=== PATIENT | male | born 1975 | race Caucasian/White ===

== ENCOUNTER → 2021-12-24 10:08 | Outpatient (BNVA) | payer BC, SELFPAY | PROVIDERS: Family Provider Family Medicine; PCP Family Medicine; Visit Provider Student in an Organized Health Care Education/Training Program | DX: S83.8X2A Sprain of other specified parts of left knee, initial encounter (principal); X58.XXXA Exposure to other specified factors, initial encounter | CPT/HCPCS: 73560; 73565 ==

== ENCOUNTER 2022-01-26 13:46 | Outpatient (CLI) | payer BC, SELFPAY ==
--- NOTE | 2022-01-26 14:30 | MR_ITS ---
WS: [id number] MRI LEFT KNEE NONCONTRAST TECHNIQUE: Axial PD, coronal PD fat sat, coronal PD, sagittal PD, and sagittal PD fat-sat images obta ined. CLINICAL INFORMATION: left knee pain COMPARISON: None. FINDINGS: Distal quadriceps and patella tendons are intact. Tiny suprapatellar effusion. Hypertrophic patella. Normal ACL and PCL. Normal lateral meniscus. Tiny horizontal tear involving the posterior horn medial meniscus extends to the articular surface. Peripheral extrusion of the medial meniscus. Chronic thin kevon of the medial meniscus with slight peripheral extrusion. Grade 2 injury of the medial collateral ligament with fluid and edema along the superficial and deep fibers consistent with ligamentous inju ry. MCL appears grossly intact. Normal LCL. Grade III chondromalacia involving the medial joint cristian rtment with joint space narrowing. Moderate chondromalacia patella. Normal medial and lateral patellar retinaculum. Normal popliteal fos sa. Small amount of prepatellar and infrapatellar soft tissue edema. Diffuse soft tissue thickening a nd subcutaneous edema along the prepatellar and infrapatellar soft tissues with anterior patella enth esophyte best identified on the recent radiograph. Associated edema in this area with underlying mitchell lla edema. MR/MR knee LT wo con* [id number] IMPRESSION: 1. Normal ACL and PCL. 2. Tiny horizontal tear involving the posterior horn medial meniscus extending to the articular surface. This is best identified on the coronal imaging. 3. Grade 2 ligamentous injury involving the medial collateral ligament with fl uid and edema along the superficial and deep fibers. MCL appears grossly intact . 4. Grade III chondromalacia involving the medial joint compartment. Peripheral extrusion of the medial meniscus. 5. Moderate chondromalacia patella.Diffuse soft tissue thickening and subcutan eous edema along the prepatellar and infrapatellar soft tissues with anterior e nthesophyte best identified on the recent radiograph. Associated edema in this area with underlying patellar edema. Outbridge grading: grade III: partial-thickness cartilage loss with focal ulcer ation
== END 2022-01-26 13:47 | disposition home or self-care (01) ==
PROVIDERS: PCP Family Medicine; Visit Provider Student in an Organized Health Care Education/Training Program
DX: S83.412A Sprain of medial collateral ligament of left knee, initial encounter (principal); M22.42 Chondromalacia patellae, left knee; M25.462 Effusion, left knee; M77.8 Other enthesopathies, not elsewhere classified; X58.XXXA Exposure to other specified factors, initial encounter
CPT/HCPCS: 73721

== ENCOUNTER 2022-02-09 08:46 | Day surgery (SDC) | payer BC, SELFPAY ==
[2022-02-08 13:50] VITALS: BMI 39.1
[2022-02-09] VITALS (10 sets, daily range): BP systolic 108–154; BP diastolic 70–104; PULSE 70–82; RESP 13–20; TEMP 36.1–36.6; O2SAT 95–98
[2022-02-09] MEDS: acetaminophen 1,000 MG/100 ML PIGGYBACK 400 MG IV (09:28)
[2022-02-09] MEDS: ketorolac 30 mg/mL INJ IVP (09:29)
[2022-02-09] MEDS: sodium chloride 0.9% 1,000 ML 30 ML IV (09:29)
--- NOTE | 2022-02-09 09:59 | ANES.PREANE2 ---
Pre-Anesthetic Assessment Height/Weight: Height 1.7 m Weight 113.398 kg Temp Pulse Resp BP Pulse Ox O2 Del Method 97.8 F 74 18 135/87 97 02/09/22 09:06 02/09/22 09:06 02/09/22 09:06 02/09/22 09:06 02/09/22 09:06 02/09/22 09:11 Preop Diagnosis: Left knee medial meniscus tear Operation Date: 02/09/22 10:20 Proposed Procedures p DIAGNOSTIC AND SURGICAL LEFT KNEE ARTHROSCOPY PARTIAL MEDIAL MENISCECTOMY VERSUS MEDIAL MENISCAL REPAIR [id number], [id number], [id number],S83.8X2A(Left) - Nelson Monse, DO Familial anesthetic complications: none Was Beta Laxmi taken within 24 hours: N/A Was Clonidine taken within 24 hours: N/A Last intake: Intake Last Liquid Date 02/08/22 Last Liquid Time 21:00 Last Solid Date 02/08/22 Last Solid Time 18:00 Social Tobacco and No alcohol Exam alert, oriented x 3, clear to auscultation bilaterally and regular rate & rhythm Airway Submandibular: within normal limits Cervical ROM: within normal limits Mallampati: Class II Dentition: full Pulmonary Chronic Obstructive Pulmonary Disease [facility] [place] Gout Anesthetic Plan ASA status: 2 Anesthesia: Choice and Regional (specify below) (left adductor blk) Medications/Allergies Home Medications Medication Instructions Recorded Confirmed Last Taken Type allopurinol 100 mg tablet 100 mg PO 1XD 02/08/22 02/09/22 02/08/22 History Allergies Allergy/AdvReac Type Severity Reaction Status Date / Time No Known Allergies Allergy Verified 02/08/22 13:48 Current Medications Generic Name Dose Route Start Last Admin Trade Name Freq PRN Reason Stop Dose Admin Sodium Chloride 1,000 mls @ 30 mls/hr 02/09/22 09:00 02/09/22 09:29 Sodium Chloride 0.9% IV 02/10/22 08:59 30 mls/hr .Q24H LETY Administration PFSH Anesthesia Medical History Acute medial meniscal injury of left knee Data Anesthesia Cardiac Studies: No Data to Display
--- NOTE | 2022-02-09 10:32 | W.PM.OPSUD ---
Surgery/Procedure H&P Update DATE OF PROCEDURE: February 09, 2022 DATE H&P PERFORMED: 01/28/22 CHANGES TO PREVIOUS DOCUMENTATION: None PREOP DIAGNOSIS: Left knee medial meniscus tear PRIMARY INDICATION FOR PROCEDURE: Left knee medial left knee medial meniscus tear Left knee chondromalacia PLANNED PROCEDURE: Operation Date: 02/09/22 10:20 Proposed Procedures p DIAGNOSTIC AND SURGICAL LEFT KNEE ARTHROSCOPY PARTIAL MEDIAL MENISCECTOMY VERSUS MEDIAL MENISCAL REPAIR [id number], [id number], [id number],S83.8X2A(Left) - Nelson Shea DO
[2022-02-09] MEDS: ceFAZolin 2,000 MG in sodium chloride 0.9% (plus) 50 ML 100 MG IV (11:01)
--- NOTE | 2022-02-09 12:22 | PM.OP2 ---
Brief Operative Note Date of procedure: 02/09/22 Pre-op diagnosis: Left knee medial meniscus tear and chondromalacia Post-op diagnosis: same Procedure Done: Left knee diagnostic and surgical arthroscopy, partial medial meniscectomy, extensive synovectomy, medial compartment chondroplasty. Surgeon: Nelson Shea Estimated blood loss (mL): 10 Complications: None Post-op Plan: Patient recover in PACU. Patient will receive appropriate discharge instructions as well as pain medication and DVT prophylaxis. Patient may be weightbearing as tolerated to the left lower extremity. We will follow-up with Dr. Shea in office in 2 weeks. Condition: stable Disposition: same day Coding Level of Care Code Acute Teletype Or Varitype Keyboard Operator for Krishna Gomez
--- NOTE | 2022-02-09 12:24 | PM.PACU ---
PACU note Narrative: Patient recovering well in PACU. Dressings clean dry and intact. Patient is able to wiggle toes plantarflex dorsiflex ankle. Sensation intact to light touch distally. Distal pulses palpable. Exam: awake (see narrative for detailed exam) Disposition: discharged
--- NOTE | 2022-02-09 12:26 | PM.OP ---
Operative Report Date of procedure: February 09, 2022 Pre-op diagnosis: Preop Diagnosis Left knee medial meniscus tear Post-op diagnosis: Same Medial compartment chondromalacia grade 2?3 Chondromalacia lateral compartment grade 1 Chondromalacia patellofemoral compartment 1?2 Procedure done: Left knee diagnostic and surgical arthroscopy with partial medial meniscectomy extensive synovectomy of the patellofemoral, medial and lateral compartments Medial compartment chondroplasty Surgeon: Nelson Shea DO Estimated blood loss: 10 cc 23 minutes IV fluids: See anesthesia record Complications: None Findings: See operative report narrative Condition: stable Disposition: same day Brief History: Felipe is a pleasant 46-year-old gentleman who was seen evaluated in the outpatient setting and had findings from physical examination as well as MRI for left knee medial meniscus tear did have some chondral malacia changes as well however he has had persistent mechanical symptoms very active and still young and active with work. Through shared decision-making he agreed to proceed with surgical intervention of the left knee diagnostic and surgical arthroscopy with partial medial meniscectomy. Patient understands risk benefits complication alternatives of surgical and nonsurgical treatment options and agreed to proceed with surgical intervention. All questions answered. Consent was obtained in office. Procedure: Patient seen evaluated in the preoperative holding area. Consent was reviewed with patient. Correct extremity was then marked. Patient seen evaluated by anesthesia department. Once cleared for surgery was taken back to the operative suite. Taken and transported to the OR table and all bony prominences were well-padded patient was appropriately secured to the bed. Patient then underwent anesthesia per the anesthesia department. Nonsterile tourniquet applied to the operative extremity. This point time left lower extremity was then prepped and draped in standard orthopedic fashion. Patient received appropriate preoperative antibiotics. Final timeout performed. Esmarch was used to exsanguinate the left lower extremity and tourniquet was in insufflated. I then proceeded with a standard 2 portal vertical incision diagnostic and surgical arthroscopy of the left knee. Started with my inferior lateral working portal for visualization. The suprapatellar pouch was free of loose bodies I then worked my way to the medial gutter which was free of loose bodies but noticeable synovium in the patellofemoral compartment. I then worked my way into the medial compartment and utilizing a spinal needle established my medial working portal through outside in technique. I then introduced the shaver and performed a medial compartment synovectomy as well as of the intercondylar notch for better visualization. I then valgus size the knee and inspected the medial compartment. Patient was found to have grade II-III chondromalacia of the femur with some unstable chondral flaps which were arthroscopic shaver was introduced and performed a medial compartment chondroplasty. The tibial plateau had 1-2 chondromalacia grade of the medial compartment. Next arthroscopic probe was then introduced and I thoroughly evaluated the medial meniscus the medial meniscal root was intact however patient did have a complex tear of the posterior horn of the medial meniscus with multiple unstable meniscal flaps. I then introduced the basket forceps and arthroscopic shaver to complete a medial meniscectomy. This completed my work in the medial compartment I then evaluated the intercondylar notch which showed a stable ACL and PCL. I then worked my way over to the lateral compartment performed a lateral compartment synovectomy for appropriate visualization. I then placed the knee in [id number] and introduced the arthroscope into the lateral compartment which showed grade I chondromalacia throughout with a pristine meniscus no meniscal tear. Then I viewed the lateral gutter free of loose bodies. And also evaluated the retrograde she had space was free of loose bodies. I then reintroduced the camera into the patellofemoral compartment introduce microscopic shaver and finished my extensive synovectomy of the patellofemoral compartment for better visualization I noticed there was grade II chondromalacia of the undersurface of the patella and grade I chondromalacia of the trochlea. We then thoroughly irrigated out the knee tourniquet was deflated hemostasis satisfactory. I then suctioned the knee to remove all excess fluid. Trochars and all instruments removed. The portals were then closed with interrupted nylon suture. Xeroform 4 x 4's ABD Curlex and Dereck wrap was then applied to the left knee. Patient was awakened from anesthesia and taken to PACU in stable condition Disposition: Patient taken back in stable condition given appropriate discharge instructions as well as pain medication and DVT prophylaxis. Patient may be weightbearing as tolerated to the left lower extremity we will follow-up with Dr. Shea in 2 weeks. Any questions or concerns he can contact the office.
--- NOTE | 2022-02-09 13:06 | ANES.PROC ---
Anesthesia Procedures Procedure/Date: 02/09/22 Nerve Block ^: Nerve Block 1: Main Anesthesia: general anesthesia Time Out Performed: Yes Consent: requested by attending/covering physician, from patient, risks and benefits reviewed and patient agrees to proceed Nerve block location: adductor canal (left) Anesthesia monitors applied: pulse oximetry, EKG, BP cuff and oxygen Nerve block position: supine Anesthetic Used: ropivicaine 0.5% Amount of anesthesia used (mL): 20 Ultrasound used to: recognize landmarks Nerve Stimulator Used?: No Interscalene/Femoral BLK: 4 stimuplex 21 g needle used for position and inplane approach Injection: neg aspiration of heme Patient Tolerated Procedure: well Complications: none
[2022-02-09] MEDS: HYDROcodone-acetaminophen 5-325 mg Tablet 1 TAB PO (13:14)
--- NOTE | 2022-02-09 17:38 | ANE.PACU2 ---
Inpatient post-anesthesia follow up: Airway intact: Yes Vital signs: Temperature 97.2 F Pulse Rate 71 Respiratory Rate 18 Blood Pressure 135/80 Pulse Oximetry 96 Oxygen Delivery Me thod Room Air Oxygen Flow Rate 8 Fraction of Inspir ed Oxygen Hydration adequate: Yes Nausea and vomiting: No Pain level: 2 Mental status: Baseline
== END 2022-02-09 13:25 | disposition home or self-care (01) ==
PROVIDERS: PCP Family Medicine; Visit Provider Student in an Organized Health Care Education/Training Program
PROC: (CPT 29870; principal; 2022-02-09 10:10)
DX: S83.242A Other tear of medial meniscus, current injury, left knee, initial encounter (principal); X58.XXXA Exposure to other specified factors, initial encounter; J44.9 Chronic obstructive pulmonary disease, unspecified
CPT/HCPCS: 29880; J0131; J0690; J1885; J2250; J2270; J2704; J2795; J3010; J7030